=== PATIENT | male | born 1980 | race Caucasian/White ===

== ENCOUNTER 2018-07-09 08:54 | Outpatient (REF) | payer BC, SELFPAY ==
[2018-07-09 13:09] LABS: ALT 56 U/L (12-78); AST 27 U/L (15-37); Albumin 3.8 g/dL (3.4-5.0); Alkaline Phosphatase 75 U/L (46-116); BUN 17 mg/dL (7-18); Bilirubin, Total 0.3 mg/dL (0.2-1.0); CREATININE 0.86 mg/dL (0.70-1.30); Chloride 102 mmol/L (98-107); Glucose 236 mg/dL (70-100); Potassium 4.5 mmol/L (3.5-5.1); Sodium 141 mmol/L (136-145); Total Protein 7.6 g/dL (6.4-8.2)
== END 2018-07-09 09:14 ==
LOC: NCHCN 08:54
PROVIDERS: PCP Nurse Practitioner Family; Visit Provider Nurse Practitioner Family
DX: R74.8 Abnormal levels of other serum enzymes (principal); I10 Essential (primary) hypertension; E11.9 Type 2 diabetes mellitus without complications; E66.9 Obesity, unspecified
CPT/HCPCS: 80053

== ENCOUNTER 2018-09-11 00:30 | Outpatient (CLI) | payer BC, SELFPAY ==
--- NOTE | 2018-09-11 14:00 | DI.US_ITS ---
SYMPTOMS/DIAGNOSIS: URIC ACID STONE IN URINE, F/U URETERAL STONE, N20.9 RENAL ULTRASOUND: Routine examination was performed. The right kidney measures 13.6 cm long. The left kidney measures 13.4 cm long. No renal masses, calculi or obstruction is seen. There is normal and symmetric blood flow to the kidneys. The prevoid urinary bladder volume is 93 cc's. The bladder wall appeared smooth. No intraluminal masses were present. Both ureteral jets were visualized. IMPRESSION: Normal renal ultrasound.
== END 2018-09-11 00:50 ==
PROVIDERS: PCP Nurse Practitioner Family; Visit Provider Urology
DX: N20.9 Urinary calculus, unspecified (principal)
CPT/HCPCS: 76770

== ENCOUNTER 2019-07-19 10:57 | Outpatient (REF) | payer BC, SELFPAY ==
[2019-07-19 21:55] LABS: ALT 51 U/L (16-63); AST 25 U/L (15-37); Albumin 4.2 g/dL (3.4-5.0); Alkaline Phosphatase 79 U/L (46-116); Anion Gap 11.6 mmol/L (3-11); BUN 17 mg/dL (7-18); Bilirubin, Total 0.5 mg/dL (0.2-1.0); CO2 25.4 mmol/L (21.0-32.0); CREATININE 0.77 mg/dL (0.70-1.30); Calcium 9.3 mg/dL (8.5-10.1); Chloride 101 mmol/L (98-107); Glucose 136 mg/dL (70-100); Potassium 4.3 mmol/L (3.5-5.1); Sodium 138 mmol/L (136-145); Total Protein 8.1 g/dL (6.4-8.2)
== END 2019-07-19 11:17 ==
LOC: NCHCN 10:57
PROVIDERS: PCP Nurse Practitioner Family; Visit Provider Nurse Practitioner Family
DX: E11.9 Type 2 diabetes mellitus without complications (principal); I10 Essential (primary) hypertension; R74.8 Abnormal levels of other serum enzymes; E66.9 Obesity, unspecified
CPT/HCPCS: 80053

== ENCOUNTER 2020-09-15 12:22 | Outpatient (REF) | payer BC, SELFPAY ==
[2020-09-15 22:12] LABS: ALT 67 U/L (16-63); AST 31 U/L (15-37); Albumin 4.3 g/dL (3.4-5.0); Alkaline Phosphatase 69 U/L (46-116); Anion Gap 10.1 mmol/L (3-11); BUN 17 mg/dL (7-18); Bilirubin, Total 0.5 mg/dL (0.2-1.0); CO2 24.9 mmol/L (21.0-32.0); CREATININE 0.81 mg/dL (0.70-1.30); Calcium 9.5 mg/dL (8.5-10.1); Chloride 102 mmol/L (98-107); Glucose 156 mg/dL (74-106); Potassium 4.4 mmol/L (3.5-5.1); Sodium 137 mmol/L (136-145); Total Protein 7.9 g/dL (6.4-8.2)
== END 2020-09-15 12:42 ==
LOC: NCHCN 12:22
PROVIDERS: PCP Nurse Practitioner Family; Visit Provider Nurse Practitioner Family
DX: I10 Essential (primary) hypertension (principal); E11.9 Type 2 diabetes mellitus without complications; R74.8 Abnormal levels of other serum enzymes; E66.9 Obesity, unspecified
CPT/HCPCS: 80053

== ENCOUNTER 2021-07-19 21:11 | Outpatient (REF) | payer BC, SELFPAY ==
[2021-07-19 21:22] LABS: Abs Immature Grans 0.04 10^3/uL (0.0-0.06); Absolute Basophil Count 0.03 10^3/uL (0.0-0.2); Absolute Eosinophil Count 0.21 10^3/uL (0.0-0.7); Absolute Lymphocyte Count 1.83 10^3/uL (1.2-3.4); Absolute Monocyte Count 0.53 10^3/uL (0.1-0.8); Absolute Neutrophil Count 3.61 10^3/uL (1.2-6.7); Basophils % 0.5; Eosinophils % 3.4; HCT 49.3 % (40.0-50.0); HGB 16.2 g/dL (13.5-17.5); Immature Grans % 0.6; Lymphocytes % 29.3; MCH 29.7 pg (27.0-33.0); MCHC 32.9 % (32.0-36.0); MCV 90.5 fL (80-95); MPV 12.2 fL (8.0-11.0); Monocytes % 8.5; Neutrophils % 57.7; Nucleated RBC 0 %; Platelet Count 174 10^3/uL (130-400); RBC 5.45 10^6/uL (4.36-5.78); RDW 12.6 % (11.8-14.1); RDW-SD 41.5 fL; WBC 6.25 10^3/uL (4.4-10.8)
[2021-07-19 21:50] LABS: ALT 55 U/L (16-63); AST 20 U/L (15-37); Alkaline Phosphatase 68 U/L (46-116); Anion Gap 9.9 mmol/L (3-11); BUN 20 mg/dL (7-18); Bilirubin, Total 0.4 mg/dL (0.2-1.0); CO2 28.1 mmol/L (21.0-32.0); CREATININE 0.8 mg/dL (0.70-1.30); Calcium 9.5 mg/dL (8.5-10.1); Calculated LDL 68 mg/dL (<100); Chloride 103 mmol/L (98-107); Cholesterol 169 mg/dL (<200); Glucose 150 mg/dL (74-106); HDL Cholesterol 37 mg/dL (40-60); Potassium 4.5 mmol/L (3.5-5.1); Sodium 141 mmol/L (136-145); Total Protein 7.8 g/dL (6.4-8.2); Triglyceride 321 mg/dL (<150)
[2021-07-23 11:36] LABS: Hepatitis A Antibody IgM Negative (Negative); Hepatitis B Core Antibody Negative (Negative); Hepatitis B surface Ag Negative (Negative); Hepatitis C Ab w Rflx HCV PCR Negative (Negative)
== END 2021-07-19 21:12 | disposition home or self-care (01) ==
LOC: NCHCN 21:11
PROVIDERS: PCP Nurse Practitioner Family; Visit Provider Nurse Practitioner Family
DX: R74.8 Abnormal levels of other serum enzymes (principal); I10 Essential (primary) hypertension; E11.9 Type 2 diabetes mellitus without complications; N20.0 Calculus of kidney; E66.9 Obesity, unspecified
CPT/HCPCS: 80053; 80061; 86704; 86709; 86803; 87340; 85025

== ENCOUNTER 2023-01-03 11:38 | Outpatient (REF) | payer BC, SELFPAY ==
[2023-01-03 15:54] LABS: ALT 58 U/L (16-63); AST 28 U/L (15-37); Albumin 3.9 g/dL (3.4-5.0); Alkaline Phosphatase 71 U/L (46-116); Anion Gap 12.4 mmol/L (3-11); BUN 19 mg/dL (7-18); Bilirubin, Total 0.5 mg/dL (0.2-1.0); CO2 25.6 mmol/L (21.0-32.0); CREATININE 0.9 mg/dL (0.70-1.30); Calcium 9.3 mg/dL (8.5-10.1); Calculated LDL 91 mg/dL (<100); Chloride 101 mmol/L (98-107); Cholesterol 178 mg/dL (<200); Estimated GFR 108.68 (mL/min/1.73m2); Glucose 267 mg/dL (74-106); HDL Cholesterol 41 mg/dL (40-60); Magnesium 1.8 mg/dL (1.8-2.4); Potassium 4.6 mmol/L (3.5-5.1); Sodium 139 mmol/L (136-145); Total Protein 7.6 g/dL (6.4-8.2); Triglyceride 231 mg/dL (<150); Vitamin B12 766 pg/mL (193-986)
== END 2023-01-03 11:39 | disposition home or self-care (01) ==
LOC: NCHCN 11:38
PROVIDERS: PCP Nurse Practitioner Family; Visit Provider Nurse Practitioner Family
DX: I10 Essential (primary) hypertension (principal); K30 Functional dyspepsia; E11.9 Type 2 diabetes mellitus without complications; N20.0 Calculus of kidney; E66.9 Obesity, unspecified
CPT/HCPCS: 80053; 80061; 82607; 83735

== ENCOUNTER 2023-12-03 12:53 | Outpatient (REF) | payer BC, SELFPAY ==
[2023-12-03 15:34] LABS: ALT 43 U/L (16-63); AST 22 U/L (15-37); Albumin 3.6 g/dL (3.4-5.0); Alkaline Phosphatase 82 U/L (46-116); Anion Gap 7.4 mmol/L (3-11); BUN 13 mg/dL (7-18); Bilirubin, Total 0.5 mg/dL (0.2-1.0); CO2 31.6 mmol/L (21.0-32.0); CREATININE 0.9 mg/dL (0.70-1.30); Calcium 9.6 mg/dL (8.5-10.1); Chloride 102 mmol/L (98-107); Estimated GFR 108.01 (mL/min/1.73m2); Glucose 198 mg/dL (74-106); Magnesium 1.8 mg/dL (1.8-2.4); Potassium 4.9 mmol/L (3.5-5.1); Sodium 141 mmol/L (136-145); Total Protein 7.9 g/dL (6.4-8.2); Vitamin B12 979 pg/mL (193-986)
[2023-12-03 16:10] LABS: Hemoglobin A1C 7.2 % (<5.7)
== END 2023-12-03 12:54 | disposition home or self-care (01) ==
LOC: NCHCN 12:53
PROVIDERS: PCP Nurse Practitioner Family; Visit Provider Nurse Practitioner Family
DX: I10 Essential (primary) hypertension (principal)
CPT/HCPCS: 80053; 82607; 83036; 83735

== ENCOUNTER 2024-12-21 08:18 | Outpatient (REF) | payer BC, SELFPAY ==
[2024-12-21 15:27] LABS: ALT 38 U/L (16-63); AST 22 U/L (15-37); Alkaline Phosphatase 97 U/L (46-116); Anion Gap 7.2 mmol/L (3-11); BUN 21 mg/dL (7-18); Bilirubin, Total 0.53 mg/dL (0.2-1.0); CO2 29.8 mmol/L (21.0-32.0); CREATININE 0.8 mg/dL (0.70-1.30); Calculated LDL 93 mg/dL (<100); Chloride 103 mmol/L (98-107); Cholesterol 167 mg/dL (<200); Estimated GFR 111.22 (mL/min/1.73m2); Folate 16.1 ng/mL (8.6-20.0); Glucose 173 mg/dL (74-106); HDL Cholesterol 42 mg/dL (40-60); Sodium 140 mmol/L (136-145); Total Protein 7.9 g/dL (6.4-8.2); Triglyceride 163 mg/dL (<150); Vitamin B12 668 pg/mL (193-986)
== END 2024-12-21 08:19 | disposition home or self-care (01) ==
LOC: NCHCN 08:18
PROVIDERS: PCP Nurse Practitioner Family; Visit Provider Nurse Practitioner Family
DX: E11.9 Type 2 diabetes mellitus without complications (principal)
CPT/HCPCS: 80053; 80061; 82607; 82746; 83735

== ENCOUNTER 2025-03-25 05:58 | Day surgery (SDC) | payer BC, SELFPAY ==
[2025-03-25 06:19] VITALS: BP 111/58; PULSE 80; RESP 18; TEMP 36.6; O2SAT 98
[2025-03-25] MEDS: Lactated Ringers 1,000 ML 80 ML IV (06:43)
--- NOTE | 2025-03-25 07:04 | W.ANESPRE ---
General Info Date of Service Date Performed: 03/25/25 Height: 6 ft 4 in Weight: 132 kg Body Mass Index (BMI): 35.4 Surgical Procedure: Operation Date: 03/25/25 07:35 Proposed Procedure Side Surgeon p Colonoscopy Migel Greene MD Meds Allergies and Home Medications Allergies Allergy/AdvReac Type Severity Reaction Status Date / Time No Known Allergies Allergy Unverified 03/25/25 06:27 Home Medication ?Medication ?Instructions ?Recorded lisinopril 10 mg tablet 40 mg PO HS #1 tab-cap 04/09/14 aspirin 81 mg tablet,delayed 81 mg PO DAILY 08/23/24 release (Adult Aspirin Regimen) potassium citrate 15 mEq (1,620 15 meq PO BID 08/23/24 mg) tablet,extended release simvastatin 10 mg tablet 10 mg PO DAILY 08/23/24 tirzepatide 15 mg/0.5 mL 15 mg subcut QWEEK 02/17/25 subcutaneous pen injector (Mounjaro) bisacodyl 5 mg tablet,delayed 5 mg PO ONCE colonscopy bowel prep 03/03/25 release (Dulcolax (bisacodyl)) #4 tabs omeprazole magnesium 20 mg 20 mg PO DAILY PRN 03/03/25 tablet,delayed release (Prilosec OTC) polyethylene glycol 3350 17 238 g PO ONCE colonoscopy prep 03/03/25 gram/dose oral powder #238 grams Current Visit Medications: Current Medications Generic Name Dose Route Start Last Admin Trade Name Freq PRN Reason Stop Dose Admin Ringer's Solution 1,000 mls @ 80 mls/hr 03/25/25 06:00 03/25/25 06:43 IV 03/25/25 23:59 80 mls/hr INFUSION DONAL Administration IV Miscellaneous Supplies 1 each 03/25/25 06:00 Iv Access IV 03/25/25 23:59 DIRECTED DONAL Sodium Chloride 0 ml 03/25/25 06:00 Normal Saline Flush 10 Ml Syr IV 03/25/25 23:59 PRN PRN Sodium Chloride 0 ml 03/25/25 06:00 Normal Saline 10 Ml Vial IJ 03/25/25 23:59 DIRECTED PRN Sterile Water 0 ml 03/25/25 06:00 Water,Injection,Sterile 10 Ml Vial IJ 03/25/25 23:59 DIRECTED PRN PFSH Active Problems Active Problems: Problem Status Onset Code Uric acid stone in urine Acute 12/12/17 N20.9 Umbilical hernia without obstruction and without gangrene Acute K42.9 Medical History Medical History Ingrown toenail of left foot Hypertension Obesity (BMI 30-39.9) Diabetes mellitus Surgical History Surgical History History of cystoscopy with removal of renal stones Tobacco Smoking/Tobacco Use Status: Never Alcohol Alcohol Intake: current Alcohol intake frequency: a few times a month Substance Use Substance use: Never Vital Signs and Lab Results Vital Signs Most Recent Vital Signs in EMR: Most Recent Vital Signs Temp Pulse Resp BP Pulse Ox 36.6 C 80 18 111/58 L 98 03/25/25 06:19 03/25/25 06:19 03/25/25 06:19 03/25/25 06:19 03/25/25 06:19 Lab Results Blood Type / Crossmatch: No Data to Display Complete Blood Count: No Data to Display Complete Metabolic Panel: No Data to Display Liver Function Panel: No Data to Display Coagulation Panel: No Data to Display Cardiac Panel: No Data to Display Arterial Blood Gas: No Data to Display Venous Blood Gas: No Data to Display Pancreas Panel: No Data to Display Thyroid Panel: No Data to Display Infectious Disease: No Data to Display Blood Cultures: No Data to Display Toxicology Panel: No Data to Display Anesthesia Assessment and Plan Anesthesia History Personal History: No History of Anesthesia Complications Family History: No Family History of Anesthesia Complications Exercise Tolerance Exercise Tolerance: Metabolic Equivalents>4 Pertinent Negatives Pertinent Negatives: No Symptoms of GERD, No Major Cardiovascular Symptoms or Complaints and No Major Pulmonary Symptoms or Complaints Cardiac & Pulmonary Exam Cardiac Exam: Normal S1/S2 Heart Sounds Pulmonary Exam: Clear Bilateral Breath Sounds Implantable Cardiac Device Does patient have a Pacemaker or an ICD?: No Airway Exam Known Difficult Airway: No Mallampati Class: 2 Mouth Opening: Normal (> 3cm) Thyromental Distance: Greater than 3 cm Neck Range of Motion: Full ROM Neck Circumference: Thick Teeth Condition: Normal Dentition ASA Classification ASA Score: ASA 2 Emergency Case?: No NPO Status NPO Status: NPO Clears >2 hours, Solids >8 hours Anesthesia Plan Resuscitation Status: Full Code Anesthesia Technique: General Anesthesia Airway Planned: Natural Airway Monitors Used: Standard Monitors Preoperative Comments:: Michelle held appropriate duration
[2025-03-25 07:08] VITALS: BMI 35.4
[2025-03-25 08:06] VITALS: BP 116/79; PULSE 83; RESP 19; TEMP 37; O2SAT 99
--- NOTE | 2025-03-25 08:08 | W.COLOREPORT ---
Date of service: 03/25/25 Time of Service: 08:08 Colonoscopy Report Procedure Description: PROCEDURES PERFORMED: 1. Colonoscopy PREOPERATIVE DIAGNOSIS: Surveillance colonoscopy POSTOPERATIVE DIAGNOSIS: Normal SURGEON: Mikala Greene MD INDICATION FOR PROCEDURE: the patient is a 45-year-old man with no family history of colon cancer. No symptoms. First screening colonoscopy. FINDINGS: Normal colon. Normal rectum. SURVEILLANCE interval/FOLLOW-UP: 10 years SPECIMENS: None EBL: Minimal COMPLICATIONS: None QUALITY of prep: Excellent Procedure in detail: The patient gave written consent and was in agreement with the indications, the potential risks as well as the benefits of the procedure. They were taken to the endoscopy suite and laid in the left lateral decubitus position. A timeout was performed and anesthesia was administered which was tolerated well. I started the procedure. Digital rectal and visual examination was performed and grossly within normal limits. A well-lubricated flexible colonoscope was then introduced and passed without any notable difficulty all the way to the cecum identified by the ileocecal valve and the appendiceal orifice. The scope was then slowly withdrawn with the above-noted findings. The patient tolerated the procedure well and was taken to the PACU in hemodynamically stable condition.
--- NOTE | 2025-03-25 08:09 | W.PM.DSUDISC ---
Date of service: 03/25/25 Discharge Plan Disposition Patient Disposition: Home Condition: Good Discharge Details Attending Provider: Migel Greene Primary Care Provider: Nicolle Galvez Home Meds and New Rx's Prescriptions: No Action aspirin [Adult Aspirin Regimen] 81 mg tablet,delayed release (DR/EC) 81 mg PO DAILY potassium citrate 15 mEq tablet extended release 15 meq PO BID simvastatin 10 mg tablet 10 mg PO DAILY omeprazole magnesium [Prilosec OTC] 20 mg tablet,delayed release (DR/EC) 20 mg PO DAILY PRN polyethylene glycol 3350 17 gram/dose powder 238 g PO ONCE Qty: 238 0RF Rx Instructions: take per colonoscopy instructions bisacodyl [Dulcolax (bisacodyl)] 5 mg tablet,delayed release (DR/EC) 5 mg PO ONCE Qty: 4 0RF Rx Instructions: take per colonoscopy instructions lisinopril 10 MG tablet 40 mg PO HS Qty: 1 Mounjaro 15 mg/0.5 mL pen injector 15 mg subcut QWEEK Discharge Instructions Additional Instructions: FINDINGS: There were no findings of concern. No polyps. Everything looks normal and healthy. Repeat another colonoscopy in 10 years. Activity:: Activity as Tolerated Diet:: As Tolerated
[2025-03-25 08:23] VITALS: BP 110/59; PULSE 82; RESP 20; TEMP 36.9; O2SAT 99
--- NOTE | 2025-03-25 08:58 | W.ANESPOSTOP ---
Postoperative Evaluation Date, Time and Location Date Performed: 03/25/25 Time Performed: 08:30 Patient Location: Day Surgery Unit Vital Signs Most Recent Imported Vital Signs: Most Recent Vital Signs Temp Pulse Resp BP Pulse Ox 36.9 C 82 20 110/59 L 99 03/25/25 08:23 03/25/25 08:23 03/25/25 08:23 03/25/25 08:23 03/25/25 08:23 Pain Score Most Recent Pain Score: Most Recent Pain Score Pain Level 0 03/25/25 06:19 Assessment Mental Status: Awake (Alert & Oriented to Patient Baseline) Airway and Respiratory Function: Patent airway with normal (patient baseline) respiratory exam Cardiovascular Function: Hemodynamically Stable Hydration Status: Adequately Hydrated Nausea & Vomiting: No Nausea or Vomiting Pain: Pt. Denies Any Pain Peripheral Nerve Block: Patient did not receive a nerve block
== END 2025-03-25 08:30 | disposition home or self-care (01) ==
PROVIDERS: PCP Nurse Practitioner Family; Visit Provider Student in an Organized Health Care Education/Training Program
PROC: 0DJD8ZZ Inspection of Lower Intestinal Tract, Via Natural or Artificial Opening Endoscopic (ICD-10-PCS; CPT 45378; principal; 2025-03-25 07:30)
DX: Z12.11 Encounter for screening for malignant neoplasm of colon (principal)
CPT/HCPCS: 45378; J2003; J2250; J2704